=== PATIENT | female | born 1925 | race Caucasian/White ===

== ENCOUNTER 2016-09-15 10:45 | Emergency (ER) | payer MEDICARE, OTHER ==
[~2016-09-15] VITALS: Ht 162.6 cm; Wt 75.0 kg
[~2016-09-15 10:45] MED LIST: ASCO100089 PO; ASPI-378 PO; ATOR40TA69 PO; CA C1TAB74 PO; CLOB50SO TP; GABA300C PO; GABA400C PO; HCTZ25 PO; IMD30 PO; IRON1TAB96 PO; KETO120S3 TP; LISI2.5T PO; MULT-1018 PO; TEN25 PO; VITA1TAB17 PO; ZAN150T
[2016-09-15 11:01] VITALS: PULSE 61; RESP 18
--- NOTE | 2016-09-15 11:13 | ED.REPORT ---
HPI-Extremity Problem Upper Date of Service Sep 15, 2016 ED Provider: The patient is an 89 year old female with history of coronary artery disease, hypertension, hypercholesteremia, atrial fibrillation on blood thinners, and carotid artery stenosis, who presents to the emergency department for upper extremity pain. The patient had a ground level fall at home 2 days ago. The patient is unsure why she fell. She was in her living room, walking towards the kitchen, and then she fell to the ground. She did not trip or slip. She did not faint or experience chest pain, palpitations or shortness of breath. She did not hit her head or lose consciousness. At this time she complains of right upper extremity pain, mostly to her elbow. She denies right shoulder pain, right wrist pain, left upper extremity pain, neck pain, head pain, abdominal pain or back pain. Nursing Notes Stated Complaint: GL LEVEL FALL/RT ARM PAIN Chief Complaint: Extremity Trauma Nursing Notes Reviewed: Yes Allergies: Uncoded Allergies: CODIENE (Adverse Reaction, Unknown, prolonged sleepiness, 09/15/16) Scheduled Ascorbic Acid-Expunged Drug, Do Not Renew! (Vitamin C-Expunged Drug, Do Not Renew!) 1,000 Mg Tab.chew 500 MG PO DAILY Aspirin-Expunged Drug, Do Not Renew! (Aspirin-Expunged Drug, Do Not Renew!) 81 Mg Tablet.dr 81 MG PO DAILY Atenolol-Expunged Drug, Do Not Renew! (Atenolol-Expunged Drug, Do Not Renew!) 25 Mg Tablet 25 MG PO DAILY Atorvastatin Calcium (Atorvastatin Calcium) 40 Mg Tablet 40 MG PO DAILY Ca Carbonate/Vitamin D3/Vit K (Calcium + Vit D & K Chew Tab) 1 Each Tab.chew 1 EACH PO DAILY Clobetasol Propionate (Clobetasol Propionate) 50 Ml Solution 50 ML TP MON-FRI Gabapentin-Expunged Drug, Do Not Renew! (Neurontin-Expunged Drug, Do Not Renew! ) 300 Mg Capsule 300 MG PO AM, NOON Gabapentin-Expunged Drug, Do Not Renew! (Neurontin-Expunged Drug, Do Not Renew! ) 300 Mg Capsule 900 MG PO HS Gabapentin-Expunged Drug, Do Not Renew! (Neurontin-Expunged Drug, Do Not Renew! ) 400 Mg Capsule 400 MG PO DAILY AT 1600 Hydrochlorothiazide-Expunged, Do Not Renew! (Hydrochlorothiazide-Expunged, Do Not Renew!) 25 Mg Tablet 25 MG PO DAILY Iron &Iron Asp Gly/Fa/Mv,Min38 (Iron Tablet) 1 Each Tablet 50 MG PO DAILY Isosorbide [place]-Expunged Drug, Do Not Renew! (HCGNN-QN-Dijtdjxg Drug, Do Not Renew!) 30 Mg Tber 30 MG PO DAILY Ketoconazole (Ketoconazole) 120 Ml Shampoo 120 ML TP 3XW Lisinopril (Lisinopril) 2.5 Mg Tablet 2.5 MG PO DAILY MULTIVITAMIN-Expunged Drug, Do Not Renew! (MULTI VITAMIN -Expunged Drug, Do Not Renew!) 1 Each Tablet 1 EACH PO DAILY Ranitidine 150 MG Tablet (Zantac 150 MG Tablet) 150 Mg Tab BID Vitamin B Complex (Vitamin B Complex) 1 Each Tablet 1 EACH PO DAILY General Time Seen by MD: 11:13 Chief Complaint Arm injury right Hx Obtained From: Patient, Daughter Arrived By: Wheelchair Onset Occurred: 2 days ago Symptom Duration: Since onset Caused by: Fall on ground Location: : Arm right Quality: Painful Severity: Current: Moderate Severity: Maximum: Severe Pertinent Negative: Pt denies other symptoms Recent Healthcare: No recent doctor visit, No recent hospitalization Similar Sx Previous: No Past Medical History Past Medical History 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 Tricuspid regurgitation Hormone replacement therapy Actinic keratoses Lymphocytic colitis Aortic stenosis Sleep apnea Peripheral neuropathy HTN Hypercholesteremia HLD Carotid artery stenosis CAD Sinus bradycardia Unspecified Afib Past Surgical History R hand surgery Reports: Angioplasty, Hysterectomy Family History Noncontributory Smoking History Never Smoker Social History Alcohol Use: Denies alcohol use Drug Use: Denies drug use Other Social History: Good social support, Local resident Review of Systems Musculoskeletal: Reports: Extremity pain, Joint pain, Denies: Back pain, Neck pain Neurologic: Denies: Change LOC, Dizziness, Headache, Lightheaded, Syncope Complete sys rev & neg: except as marked. Cardiovascular: Denies: Chest pain GI: Denies: Abdominal pain Physical Exam Initial Vital Signs Vital Signs (First) Date Time Temp Pulse Resp B/P Pulse Ox O2 Delivery O2 Flow Rate FiO2 09/15/16 11:01 36 61 18 Room Air Initial VS: Reviewed Head / Eyes: Atraumatic, Normocephalic, PERRL ENT: Mucous membranes moist, Conjunctiva normal, No scleral icterus Neck: Supple, Non-tender, Full range of motion Respiratory: Breath sounds normal, Clear to auscultation, No respiratory distress Cardiovascular: Regular rate & rhythm, Heart sounds normal, Intact distal pulses Abdomen / GI: Soft, Non-tender, No guarding, No rebound, No distention Lymphatic: No lymphadenopathy Lower Extremities: Vascular intact, Neuro intact, No swelling, No tenderness Skin: Warm, Dry, No cyanosis Neurologic: Alert, Oriented, Nonfocal Psychiatric: Mood/affect normal, Behavior normal, Normal thought content General/Constitutional: Awake, Alert, Well appearing, Cooperative Upper Extremity / MS: Neurologic intact, Vascular intact Diffuse tenderness to her right arm. There is no crepitus or deformity. Interpretation & Diagnostics X-Ray Interpretation Xray Interpretation: IMPRESSION: No displaced fracture seen. If there is continued pain, followup exam or additional imaging such as MRI or CT could be performed for further assessment. Dictated by: Jose E LEAL Interpreted: Arely Nazario MD on 09/15/2016 at 11:52 X-Ray Ordered: Humerus right Interpretation / Wet Read by: Interpret - Radiologist Re-Eval/Medical Decision Source of Hx: Old records, Family Re-Evaluation/Progress : Time of Eval: 13:04 Re-Evaluation/Progress Note: Rechecked the patient. Discussed x-ray results, diagnosis, and plan for discharge. All questions were addressed. Counseled Regarding: Diagnosis, Need for follow-up, When/why to return to ED Discharge & Departure Impression: Primary Impression: Right arm pain Additional Impression: Fall from ground level Disposition: Home Discharge Condition All VS Reviewed: Yes Condition: Stable Additional Instructions: Thank you for entrusting us with your care today. Your x-ray today is reassuring. There is no evidence of any acute fractures. Use the sling as needed. You can take Tylenol at night before your go to bed. You can also try applying hot or cold packs if they help. Followup with your regular doctor next week if your pain continues. Please return to the emergency department for any new or concerning symptoms. Referrals: Nikos Hung (PCP) Scribe Attestation Portions of this note were transcribed by Porsche Carroll. Dr. Holly Paniagua personally performed the history, physical exam and medical decision-making; I reviewed and confirmed the accuracy of the information in the transcribed note. Signed by: Merrill Easton, 09/15/2016 at 1310. copies to: Nikos Hung Kirk H MD Sep 15, 2016 11:13 Porsche Carroll Sep 15, 2016 11:21
--- NOTE | 2016-09-15 11:52 | DRSVH ---
PROCEDURE: X-RAY RIGHT HUMERUS, MINIMUM TWO VIEWS ([id number]) INDICATIONS: fall, right upper arm pain TECHNIQUE: 2 views of the humerus were acquired. COMPARISON: None. FINDINGS: Bones: No fractures or dislocations. No suspicious bony lesions. Superior subluxation humeral head suggesting rotator cuff pathology and/or muscle atrophy. Acromioclavicular and glenohumeral joint d egeneration. Soft tissues: No suspicious soft tissue calcifications. IMPRESSION: No displaced fracture seen. If there is continued pain, followup exam or additional imag ing such as MRI or CT could be performed for further assessment. Dictated by: Jose E GARCIA Interpreted: Arely Nazario MD on 09/15/2016 at 11:52 Transcribed by: RADHA on 09/15/2016 at 11:52 Approved by: Arely Nazario MD, PhD on 09/15/2016 at 16:14
== END 2016-09-15 13:42 | disposition home or self-care (01) ==
LOC: SED 10:45
DX: M25.521 Pain in right elbow (principal); W18.30XA Fall on same level, unspecified, initial encounter; Y93.01 Activity, walking, marching and hiking; Y99.8 Other external cause status; Y92.018 Other place in single-family (private) house as the place of occurrence of the external cause; I10 Essential (primary) hypertension; I25.10 Atherosclerotic heart disease of native coronary artery without angina pectoris; E78.00 Pure hypercholesterolemia, unspecified; I48.91 Unspecified atrial fibrillation; Z86.79 Personal history of other diseases of the circulatory system; Z79.82 Long term (current) use of aspirin; Z79.01 Long term (current) use of anticoagulants; Z79.890 Hormone replacement therapy; Z88.5 Allergy status to narcotic agent

== ENCOUNTER 2016-12-04 16:18 | Emergency (ER) | payer MEDICARE, OTHER ==
[~2016-12-04] VITALS: Ht 160 cm; Wt 77.3 kg
--- NOTE | 2016-12-04 16:29 | ED.REPORT ---
HPI-General Illness Date of Service Dec 04, 2016 ED Provider: Dr. Iveth Fletcher D.O. The patient is an 89 year old female with an extensive medical history including MGUS, CAD, aortic stenosis, HTN, peripheral neuropathy, and atrial fibrillation on warfarin who presents to the ED via EMS accompanied by her son with an intermittently bloodshot right eye onset several months ago, worsening today. The patient also reports recent generalized weakness, fatigue, and exertional dyspnea. She denies eye pain, eye itchiness, vision change, fever, chills, hematochezia, melena, nausea, or other symptoms. EMS found the patient with a BP of 140/86, a pulse of 71, a respiration rate of 16, and a pulse ox of 97 on RA. The patient's son reports that her INR was normal at the beginning of the month but she recently ran out of her warfarin prescription sooner than expected and he is concerned she may be over dosing. The patient is currently being worked-up for her eye symptoms, with an ophthalmology appointment scheduled for next week. Nursing Notes Stated Complaint: BLEEDING FROM EYES Nursing Notes Reviewed: Yes Allergies: Uncoded Allergies: CODIENE (Adverse Reaction, Unknown, prolonged sleepiness, 09/15/16) Scheduled Ascorbic Acid-Expunged Drug, Do Not Renew! (Vitamin C-Expunged Drug, Do Not Renew!) 1,000 Mg Tab.chew 500 MG PO DAILY Aspirin-Expunged Drug, Do Not Renew! (Aspirin-Expunged Drug, Do Not Renew!) 81 Mg Tablet.dr 81 MG PO DAILY Atenolol-Expunged Drug, Do Not Renew! (Atenolol-Expunged Drug, Do Not Renew!) 25 Mg Tablet 25 MG PO DAILY Atorvastatin Calcium (Atorvastatin Calcium) 40 Mg Tablet 40 MG PO DAILY Azithromycin (Zithromax) 250 Mg Tablet 250 MG PO DAILY Ca Carbonate/Vitamin D3/Vit K (Calcium + Vit D & K Chew Tab) 1 Each Tab.chew 1 EACH PO DAILY Clobetasol Propionate (Clobetasol Propionate) 50 Ml Solution 50 ML TP MON-TUE Gabapentin-Expunged Drug, Do Not Renew! (Neurontin-Expunged Drug, Do Not Renew! ) 300 Mg Capsule 300 MG PO AM, NOON Gabapentin-Expunged Drug, Do Not Renew! (Neurontin-Expunged Drug, Do Not Renew! ) 300 Mg Capsule 900 MG PO HS Gabapentin-Expunged Drug, Do Not Renew! (Neurontin-Expunged Drug, Do Not Renew! ) 400 Mg Capsule 400 MG PO DAILY AT 1600 Hydrochlorothiazide-Expunged, Do Not Renew! (Hydrochlorothiazide-Expunged, Do Not Renew!) 25 Mg Tablet 25 MG PO DAILY Iron &Iron Asp Gly/Fa/Mv,Min38 (Iron Tablet) 1 Each Tablet 50 MG PO DAILY Isosorbide [place]-Expunged Drug, Do Not Renew! (VLMJP-EP-Gtivtfxi Drug, Do Not Renew!) 30 Mg Tber 30 MG PO DAILY Ketoconazole (Ketoconazole) 120 Ml Shampoo 120 ML TP 3XW Lisinopril (Lisinopril) 2.5 Mg Tablet 2.5 MG PO DAILY MULTIVITAMIN-Expunged Drug, Do Not Renew! (MULTI VITAMIN -Expunged Drug, Do Not Renew!) 1 Each Tablet 1 EACH PO DAILY Ranitidine 150 MG Tablet (Zantac 150 MG Tablet) 150 Mg Tab BID Vitamin B Complex (Vitamin B Complex) 1 Each Tablet 1 EACH PO DAILY General Time Seen by MD: 16:27 Chief Complaint Other (Bloodshot Right Eye) Hx Obtained From: Patient, Son Arrived By: Ambulance Sudden in Onset?: No Onset Occurred: More than a week ago... 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 Tricuspid regurgitation Hormone replacement therapy Actinic keratoses Lymphocytic colitis Aortic stenosis Sleep apnea Peripheral neuropathy HTN Hypercholesteremia HLD Carotid artery stenosis CAD Sinus bradycardia Unspecified Afib Past Surgical History R hand surgery Cardiac stent x1 Reports: Angioplasty, Hysterectomy Family History Noncontributory Smoking History Never Smoker Social History Alcohol Use: Denies alcohol use Drug Use: Denies drug use Other Social History: Good social support, Local resident Ambulatory Status Independent Review of Systems + Bloodshot right eye - Eye itchiness Full Review of Systems Constitutional: Reports: Fatigue, Weakness - generalized, Denies: Chills, Fever Eyes: Denies: Eye pain bilateral Respiratory: Reports: Dyspnea on exertion, Denies: Non-productive cough GI: Denies: Diarrhea, Hematochezia, Melena, Nausea, Vomiting Neurologic: Denies: Vision change Complete sys rev & neg: except as marked. Physical Exam Vital Signs Vital Signs Date Time Temp Pulse Resp B/P Pulse Ox O2 Delivery O2 Flow Rate FiO2 12/04/16 21:02 37.2 76 16 161/85 96 Room Air 12/04/16 17:28 73 18 152/65 97 12/04/16 16:30 36.4 78 18 116/49 97 Room Air Initial VS: Reviewed Neck: Supple, Full range of motion Skin: Warm, Dry, No cyanosis Psychiatric: Mood/affect normal, Behavior normal, Normal thought content General/Constitutional: Awake, Alert Head / Eyes: Atraumatic, Normocephalic, PERRL Conjunctiva / Sclera: Positive: Subconj hemorrhage right Left eye normal ENT: Airway patent, Mucous membranes moist Respiratory / Chest: Breath sounds NL, Breath sounds = bilat, No respiratory distress Cardiovascular: Heart rate NL, Regular rhythm Heart Rate / Rhythm: Positive: Irreg irregular rhythm Lower Ext Edema: Positive: Bilateral 1+, Pitting Abdomen: Soft, Non-tender Neurologic: Oriented X3, Speech NL Interpretation & Diagnostics Lab Results Interpretation Result Diagram: 12/04/16 1700 12/04/16 1700 Test 12/04/16 17:00 White Blood Count 5.7th/mm3 (3.8-10.1) Red Blood Count 4.50mil/mm3 (3.90-5.20) Hemoglobin 14.4g/dL (12.0-15.6) Hematocrit 42.5% (35.0-46.0) Mean Corpuscular Volume 94.4fL (81-100) Mean Corpuscular Hemoglobin 32.0pg (27.0-35.0) Mean Corpuscular Hemoglobin Concent 33.9% (32.0-37.0) Red Cell Distribution Width 15.3% (12.3-15.4) Platelet Count 121bil/L (150-400) Neutrophils (%) (Auto) 39.6% (40-74) Lymphocytes (%) (Auto) 38.2% (14-46) Monocytes (%) (Auto) 14.6% (4-12) Eosinophils (%) (Auto) 6.3% (0-5) Basophils (%) (Auto) 1.1% (0-3) Prothrombin Time 32.8sec (8.1-12.5) Prothromb Time International Ratio 3.00ratio Sodium Level 136mEq/L (134-144) Potassium Level 4.0mEq/L (3.5-5.2) Chloride Level 98mEq/L (97-108) Carbon Dioxide Level 25mmol/L (18-29) Blood Urea Nitrogen 9mg/dL (8-27) Creatinine 0.61mg/dL (0.57-1.00) Estimat Glomerular Filtration Rate 132mL/min (>59) Glucose Level 90mg/dL (60-99) Calcium Level 9.7mg/dL (8.5-10.1) Magnesium Level 1.6mg/dL (1.6-2.6) Total Bilirubin 1.9mg/dL (0.0-1.2) Aspartate Amino Transf (AST/SGOT) 44U/L (0-50) Alanine Aminotransferase (ALT/SGPT) 27U/L (0-32) Alkaline Phosphatase 118U/L (25-165) Troponin T < 0.010ug/L (0.0-0.011) Pro-B-Type Natriuretic Peptide 236.0pg/mL (0-738) Total Protein 7.3g/dL (6.4-8.4) Albumin 3.2g/dL (3.4-5.0) ECG Interpretation ECG Interpretation: Atrial fibrillation rate 71 RBBB, old T-wave inversion leads III and aVF - unchanged from prior (12/06/12) Time: 16:48 Interpreted by: ED physician X-Ray Chest Interpretation Chest Xray Interpretation: IMPRESSION: Advance would be consistent with bibasilar pneumonias and some interstitial pulmonary edema. Dictated by: Vince Campos M.D. on 12/04/2016 at 17:13 View: Portable, 1 view Interpretation / Wet Read by: Interpret - Radiologist Re-Eval/Medical Decision Med Decision/Clinical Course 89-year-old female who is a very poor historian presents with her son who does not know much of her history either. She has had an unknown problem with her right eye that she has been seeing an eye doctor for further past 8 months and she came to the ER because her neighbor thought her I looked very red and was concerning. She notes incidentally that she has had some increasing dyspnea on exertion but it denies paroxysmal nocturnal dyspnea and orthopnea. She also denies fevers or chills and does not appear to have any SIRS or signs of sepsis. X-ray shows bibasilar pneumonia/fluid collection and possibly some curly B-lines/mild vascular congestion. I did review her old echocardiogram which showed some moderate valvular disease but no decrease in her ejection fraction. This was performed May 2016. She also recently saw her parking officer, Dr. Sandee james who noted that she would be seen in 6 months and things are going well. She is unsure if the leg swelling that she has today is new or old. Initially I thought she may have some signs of congestive heart failure so I gave her a dose of Lasix 20 mg IV. I also added on a BNP that returned negative. I elected to treat her for a pneumonia given the x-ray findings and her complaints of feeling weak and short of breath. She is not hypoxic today and is in no respiratory distress. I think she can safely be treated as an outpatient and she and her son are agreeable with this. She in fact does not want to be admitted to the hospital. I see no evidence of confusion or altered mental status today. I have asked her to follow up closely with her PCP next week and also to keep her eye doctor follow-up on Tuesday. She has good vision today and her exam appears to show only subconjunctival hemorrhage. Her INR is normal at 3.0 Source of Hx: Old records Time of Eval: 19:05 Patient Status: Condition improved Re-Evaluation/Progress Note: Discussed with patient lab and x-ray results with plan for additional lab work. Time of Eval: 20:17 Patient Status: Condition improved Re-Evaluation/Progress Note: Discussed with patient lab and x-ray results, diagnosis, and plan for discharge. Follow-up and return to the ER instructions given. Patient agrees with plan for care and all questions were addressed. Counseled Regarding: Diagnosis, Lab results, Need for follow-up, When/why to return to ED Discharge & Departure Primary Impression: Pneumonia Pneumonia type: due to unspecified organism Laterality: bilateral Lung location: lower lobe of lung Qualified Code: J18.9 - Pneumonia, unspecified organism Additional Impression: Subconjunctival hemorrhage of right eye Disposition: Home Discharge Condition All VS Reviewed: Yes Condition: Improved Patient Instructions: Community Acquired Pneumonia (ED), Subconjunctival Hemorrhage (ED) Additional Instructions: Thank you for entrusting us with your care. I do not see anything dangerous with your eye today. Your lab results do not suggest congestive heart failure, but there is some extra fluid on your lungs. Your chest x-ray indicates a developing pneumonia. Take Azithromycin as prescribed. Call your primary care provider on Tuesday for a follow-up appointment next week. Keep your ophthalmology appointment on Tuesday. Return to the ER with any new or worsening symptoms. Referrals: Shadi Holcomb DO (PCP) Scribe Attestation Portions of this note were transcribed by Aury Peterson. I, Dr. Fletcher, personally performed the history, physical exam, and medical decision-making; I reviewed and confirmed the accuracy of the information in the transcribed note. Signed by: Merrill Bacon, 12/04/2016, 22:20 copies to: Shadi Holcomb Gary R DO Dec 04, 2016 16:29 AURY PETERSON Dec 04, 2016 16:54
[2016-12-04 16:30] VITALS: BP 116/49; PULSE 78; RESP 18; O2SAT 97
--- NOTE | 2016-12-04 17:16 | DRSVH ---
PROCEDURE: X-RAY CHEST ONE VIEW, PORTABLE ([id number]) INDICATIONS: SHORTNESS OF BREATH TECHNIQUE: One view of the chest was acquired. COMPARISON: None. FINDINGS: Surgical changes and devices: women's activities adviser leads are present over the chest Lungs and pleura: There is loss of aeration involving the basilar portion of the right lower lobe and the posterior retrocardiac region the left chest. Suggestion of some Jace lines on the left. Small effusions are thought to be present. Vasculature is prominent. Mediastinum: Mediastinal contours appear normal. Heart size is normal. Bones and chest wall: No suspicious bony lesions. Overlying soft tissues appear unremarkable. IMPRESSION: Advance would be consistent with bibasilar pneumonias and some interstitial pulmonary cristhian ma. Dictated by: Vince Campos M.D. on 12/04/2016 at 17:13 Approved by: Vince Campos M.D. on 12/04/2016 at 17:15
[2016-12-04 17:23] LABS: BASOPHILS % (AUTO) 1.1 % (0-3); EOSINOPHILS % (AUTO) 6.3 % (0-5); MONOCYTES % (AUTO) 14.6 % (4-12); Mean Corpuscular Volume 94.4 fL (81-100); NEUTROPHILS % (AUTO) 39.6 % (40-74); Platelet Count 121 bil/L (150-400)
[2016-12-04 17:28] VITALS: BP 152/65; PULSE 73; RESP 18; O2SAT 97
[2016-12-04 17:52] LABS: TROPONIN T < 0.010 ug/L (0.0-0.011)
[2016-12-04 17:57] LABS: Magnesium 1.6 mg/dL (1.6-2.6)
[2016-12-04] MEDS ORDERED: Furosemide 10 mg/mL 2 mL Inj IVPUSH ONE (19:10)
[2016-12-04] MEDS ORDERED: ZIT250 PO (20:31)
[2016-12-04 21:02] VITALS: BP 161/85; PULSE 76; RESP 16; O2SAT 96
== END 2016-12-04 21:04 | disposition home or self-care (01) ==
LOC: SED 16:18 → EDBD 16:18 → SED 21:04
DX: J18.9 Pneumonia, unspecified organism (principal); H11.31 Conjunctival hemorrhage, right eye; R53.1 Weakness; R53.83 Other fatigue; I11.9 Hypertensive heart disease without heart failure; I25.10 Atherosclerotic heart disease of native coronary artery without angina pectoris; I48.91 Unspecified atrial fibrillation; E78.5 Hyperlipidemia, unspecified; Z95.5 Presence of coronary angioplasty implant and graft; Z79.01 Long term (current) use of anticoagulants
CPT/HCPCS: 36415; 71010; 80053; 82948; 83735; 83880; 84484; 85025; 85610; 93005; 96374; 99285; J1940